=== PATIENT | female | born 1965 | race African-American/Black ===

== ENCOUNTER 2021-07-11 14:45 | Emergency (ER) | payer OTHER ==
[2021-07-11 15:31] LABS: BILIRUBIN NEGATIVE (NEGATIVE); BLOOD TRACE-INTACT Ery/uL (NEGATIVE); CLARITY CLEAR (CLEAR); COLOR YELLOW (YELLOW); GLUCOSE (U) NORMAL (NORMAL); LEUKOCYTES NEGATIVE Leu/uL (NEGATIVE); NITRITE NEGATIVE (NEGATIVE); PROTEIN NEGATIVE (NEGATIVE); SPECIFIC GRAVITY 1.015 (1.001-1.030); UROBILINOGEN 0.2 mg/dL (0.2-1.0)
[2021-07-11 15:31] LABS: BASOPHIL 0.9 % (0-2); EOSINOPHIL 0.4 % (0-5); HCT 47.1 % (37.0-47.0); HGB 14.8 g/dl (12.5-16.0); MCH 27.5 pg (25.0-31.0); MCHC 31.4 g/dL (32.0-36.0); MCV 87.4 fL (78.0-100.0); MONOCYTE 8.1 % (0-12); MPV 9.7 fL (6.0-9.5); NRBC 0; PLT 343 K/uL (150-400); RBC 5.39 M/uL (4.20-5.40); RDW 13.2 % (11.5-14.0); WBC 5.7 K/uL (4.0-10.5)
[2021-07-11 15:32] LABS: LYMPHOCYTE 47.4 % (15-48)
[2021-07-11 15:46] LABS: BACTERIA TRACE
[2021-07-11 15:50] LABS: ALBUMIN 3.6 g/dL (3.4-5.0); BILIRUBIN - TOTAL 0.5 mg/dL (0.2-1.0); BUN/CREAT RATIO (CALC) 9.5 RATIO; CREATININE 1.05 mg/dL (0.51-0.95); GLOBULIN (CALCULATION) 3.8 g/dL; POTASSIUM 4.2 mmol/L (3.5-5.1); TOTAL PROTEIN 7.4 g/dL (6.4-8.2)
== END 2021-07-11 17:27 | disposition home or self-care (01) ==
LOC: FER 14:45
PROVIDERS: Nurse Practitioner Family
DX: R51.9 Headache, unspecified (principal); Z88.0 Allergy status to penicillin
CPT/HCPCS: 36415; 70450; 80053; 81001; 85025; J1100; J1885; J7030

== ENCOUNTER 2022-06-05 13:29 | Emergency (ER) | payer OTHER ==
[~2022-06-05] VITALS: Ht 172.7 cm; Wt 93.0 kg
[2022-06-05 15:24] LABS: EOSINOPHIL 0.2 % (0-5); HCT 46.5 % (37.0-47.0); HGB 14.9 g/dl (12.5-16.0); MCH 27.9 pg (25.0-31.0); MCV 87.1 fL (78.0-100.0); MONOCYTE 7.5 % (0-12); MPV 10.6 fL (6.0-9.5); NEUTROPHIL 43.1 % (41-80); NRBC 0; PLT 325 K/uL (150-400); RBC 5.34 M/uL (4.20-5.40); RDW 13.2 % (11.5-14.0); WBC 6.1 K/uL (4.0-10.5)
[2022-06-05 15:38] LABS: BUN/CREAT RATIO (CALC) 9.5 RATIO; CREATININE 0.84 mg/dL (0.51-0.95); POTASSIUM 3.9 mmol/L (3.5-5.1)
[2022-06-05] MEDS ORDERED: NAPROXEN500 MG PO (16:02)
== END 2022-06-05 16:28 | disposition home or self-care (01) ==
LOC: FER 13:29
PROVIDERS: Emergency Medicine
DX: M94.0 Chondrocostal junction syndrome [Tietze] (principal); Z88.0 Allergy status to penicillin; Z88.5 Allergy status to narcotic agent; Z88.1 Allergy status to other antibiotic agents
CPT/HCPCS: 36415; 71046; 80048; 84484; 85025; 93005